=== PATIENT | female | born 1965 | race Caucasian/White ===

== ENCOUNTER → 2017-01-24 | Outpatient (CLI) | payer BC ==
--- NOTE | 2017-01-24 10:30 | KCIC ---
PROCEDURE Complete abdomen ultrasound HISTORY Abdomen pain. COMPARISON None FINDINGS Pancreas appears unremarkable Aorta appears ectatic but non aneurysmal. Inferior vena cava is patent. Liver is borderline enlarged at 18.1 cm longitudinal. Mild coarse appearance of the liver suggests mild fatty infiltration. Gallbladder demonstrates no evidence of gallstones or gallbladder wall thickening. Common bile duct measures 5 millimeters diameter. Right kidney measures 11.6 cm longitudinal without hydronephrosis. Left kidney measures 12.0 cm longitudinal without hydronephrosis. Spleen is not enlarged. IMPRESSION 1. Borderline hepatomegaly with suggestion of fatty infiltration. 2. No evidence of sonographic abnormality at the gallbladder. Electronically signed by: Amor Smith MD (January 24, 2017 10:28:15)
== END | disposition home or self-care (01) ==
LOC: KCIC US 07:43
PROVIDERS: ATTEND Family Medicine
DX: R10.9 Unspecified abdominal pain (principal)
CPT/HCPCS: 76700

== ENCOUNTER → 2019-08-14 | Outpatient (CLI) | payer BC ==
[2019-04-13 11:00] VITALS: BP 107/58
[~2019-08-14] MED LIST: AZIT250T6 PO; LACT1CAP19 PO; LEVO750T31 PO; ONDA4TAB7 PO
--- NOTE | 2019-08-14 10:13 | KCIC ---
MRI left knee without contrast dated 08/14/2019. No comparison available. Clinical data indication: Knee pain. TECHNIQUE: Routine multiple and multisequence MR imaging performed. FINDINGS: Moderate tricompartmental hypertrophic change with prominent marginal osteophytes. Thinning and surface irregularity of the articular cartilage throughout. There is full-thickness cartilage loss at the weightbearing surfaces medial femoral condyle and medial tibial plateau with full-thickness cartilage loss of the lateral femoral trochlea. Moderate size joint effusion. No significant popliteal cyst. No intra-articular loose body. Anterior cruciate and posterior cruciate ligaments intact. Medial and lateral collateral complexes are intact. Iliotibial band, popliteus tendon and pes anserine complex within normal limits. Quadriceps and patellar tendon are intact. No abnormality of the medial or lateral retinaculum. There is mild lateral patellar subluxation with tibial tubercle to trochlear groove distance estimated at about 1.2 cm. There is a focal radial tear of the posterior horn medial meniscus near the meniscal root. The medial meniscal body is slightly extruded into the medial gutter. The anterior horn is intact. There is increased signal and ill-definition of the anterior horn lateral meniscus with blunting of the free edge. The lateral meniscal body and posterior horn are intact. IMPRESSION: 1. Prominent full-thickness radial tear at the posterior horn medial meniscus near the meniscal root. The medial meniscal body is slightly extruded in the medial gutter. 2. Degenerative tear at the anterior horn of lateral meniscus. 3. Moderate tricompartmental degenerative arthrosis and chondromalacia. There is full-thickness cartilage loss at the medial and anterior compartments. 4. Moderate size joint effusion. 5. Mild lateral patellar subluxation. Electronically signed by: Amor Daley MD (08/14/2019 10:10 AM) [id number]
== END | disposition home or self-care (01) ==
LOC: KCIC MRI 08:29
PROVIDERS: ATTEND Family Medicine
DX: S83.242A Other tear of medial meniscus, current injury, left knee, initial encounter (principal); S83.012A Lateral subluxation of left patella, initial encounter; M25.462 Effusion, left knee; M25.762 Osteophyte, left knee; M94.262 Chondromalacia, left knee; X58.XXXA Exposure to other specified factors, initial encounter; Y93.89 Activity, other specified; Y92.89 Other specified places as the place of occurrence of the external cause; Y99.8 Other external cause status
CPT/HCPCS: 73721